=== PATIENT | male | born 1945 | race Caucasian/White ===

== ENCOUNTER 2017-01-21 17:45 | Observation (INO) | payer OTHER ==
--- NOTE | 2017-01-21 18:14 | EDPHY ---
H & P Stated Complaint: pna with r sided weakness last week/today developed r leg weakness and slur Time Seen by Provider: 01/21/17 18:09 HPI/ROS: CHIEF COMPLAINT: Right leg weakness, slurred speech HISTORY OF PRESENT ILLNESS: The patient presents to the ED with complaints of acute right leg weakness and slurred speech. Patient's symptoms began approximately an hour prior to arrival. The patient reportedly was at a grocery store with his grandchildren. The patient states his symptoms have resolved at this point time. The patient states he was hospitalized approximately 1 week ago in [place] with pneumonia. During that hospitalization he also had a brief episode of right leg weakness. The patient reportedly had an MRI of his brain which demonstrated no evidence of an acute stroke. The patient did have some nonspecific white matter changes noted. The patient did not have a workup performed for TIA during that hospitalization. He did follow up with his primary care provider at [place] yesterday and reviewed his workup. The patient states that his symptoms of pneumonia and chills have improved. He took his last dose of antibiotics today. REVIEW OF SYSTEMS: A comprehensive 10 point review of systems is otherwise negative aside from elements mentioned in the history of present illness. Source: Patient Exam Limitations: No limitations - Personal History Current Tetanus/Diphtheria Vaccine: Yes - Medical/Surgical History Hx Asthma: No Hx Chronic Respiratory Disease: No Hx Diabetes: No Hx Cardiac Disease: Yes Hx Renal Disease: No Hx Cirrhosis: No Hx Alcoholism: No Hx HIV/AIDS: No Hx Splenectomy or Spleen Trauma: No Other PMH: pna/mitral regurg - Social History Smoking Status: Never smoked - Physical Exam Exam: General Appearance: Alert, no distress Eyes: Pupils equal and round no pallor or injection ENT, Mouth: Mucous membranes moist Respiratory: There are no retractions, lungs are clear to auscultation Cardiovascular: Regular rate and rhythm Gastrointestinal: Abdomen is soft and nontender, no masses, bowel sounds normal Neurological: A&O, normal motor function, normal sensory exam, normal cranial nerves Skin: Warm and dry, no rashes Musculoskeletal: Neck is supple nontender Extremities: symmetrical, full range of motion Constitutional: Initial Vital Signs Temperature (C) 36.6 C 01/21/17 17:49 Heart Rate 88 01/21/17 17:49 Respiratory Rate 20 01/21/17 17:49 Blood Pressure 159/106 H 01/21/17 17:49 O2 Sat (%) 94 05/12/17 17:49 O2 Delivery Mode Room Air Allergies/Adverse Reactions: No Known Allergies Allergy (Unverified 01/21/17 17:49) Home Medications: Medication Instructions Recorded Antibiotic Uknown 1 tab PO BID 01/21/17 Aspirin EC [Aspirin EC 81 mg (*)] 81 mg PO HS 01/21/17 Atorvastatin Calcium [Lipitor 40 40 mg PO HS 01/21/17 mg (*)] Herbals/Supplements -Info Only 1 ea PO DAILY 01/21/17 Latanoprost 0.005% [Xalatan 0.005% 1 drops EACHEYE HS 01/21/17 (*)] Lisinopril [Zestril 10 mg (*)] 10 mg PO DAILY 01/21/17 Timolol 0.25% [TIMOPTIC 0.25% (*)] 1 drops RTEYE DAILY 01/21/17 amLODIPine BESYLATE [Norvasc 2.5 2.5 mg PO DAILY 01/21/17 mg (*)] traZODone [traZODONE 50MG (*)] 50 mg PO HS PRN 01/21/17 Medical Decision Making - Diagnostics EKG Interpretation: EKG: Complete interpretation has been separately recorded in the [employer] archive. Summary impression: Sinus rhythm, PAC noted Imaging Results: Imaging Impressions Head CT 01/21/17 19:41 Impression: Head CT within normal limits. Final concordant results called to Dr. Guevara at 20:33. General information for patients regarding this examination can be found at [email or web address]. If you have questions or comments about this report, please contact me at [phone] (hospital) or [phone] (cell). Head CTA 01/21/17 19:41 Impression: Incomplete [place]. The left internal carotid artery is the main source of blood to both anterior and the left middle cerebral arteries. There is only a tiny thread of a left posterior communicating artery. In light of the severe left internal carotid artery stenosis, this is an ominous anatomical arrangement. Initial results discussed with Dr. Ran Guevara at 8:[address] Angiography of the Neck (With Contrast) , 20:07 Clinical Indications: Right leg weakness, slurred speech, right arm weakness last week Technique: During IV administration of 90 mL of Isovue-370 intravenously, helical multidetector data acquisition was obtained from the upper thorax cephalad through the skull base. The thinly collimated data were manipulated in multiple projections on the 3D computer workstation by the radiologist. Dose reduction techniques were utilized. Findings: There is a 1.5mm wide, 11mm long, smooth flow-limiting stenosis of the left internal carotid artery, beginning at the bifurcation. The tightest stenosis is distally and measures about 1 mm (greater than 90% NASCET criteria) . There is symmetric density contrast in the normal sized internal carotid artery distal to this stenosis. The right carotid bifurcation is widely patent, with mild nonflow limiting, predominantly noncalcified plaque associated with the proximal internal carotid artery (less than 10% NASCET narrowing). Both vertebral arteries are patent. The proximal left common carotid artery is tortuous and associated with a kink a few centimeters after its origin. The proximal left subclavian artery is also tortuous. Impression: Very tight flow-limiting stenosis proximal left internal carotid artery. Note: All stenoses are calculated using NASCET Criteria. Final concordant results called and discussed with George Guevara, at 2016 20:50 General information for patients regarding this examination can be found at [email or web address]. If you have questions or comments about this report, please contact me at (hospital) or [phone] (cell). Neck CTA 01/21/17 19:41 Impression: Incomplete [place]. The left internal carotid artery is the main source of blood to both anterior and the left middle cerebral arteries. There is only a tiny thread of a left posterior communicating artery. In light of the severe left internal carotid artery stenosis, this is an ominous anatomical arrangement. Initial results discussed with Dr. Ran Guevara at 8:[address] Angiography of the Neck (With Contrast) , 20:07 Clinical Indications: Right leg weakness, slurred speech, right arm weakness last week Technique: During IV administration of 90 mL of Isovue-370 intravenously, helical multidetector data acquisition was obtained from the upper thorax cephalad through the skull base. The thinly collimated data were manipulated in multiple projections on the 3D computer workstation by the radiologist. Dose reduction techniques were utilized. Findings: There is a 1.5mm wide, 11mm long, smooth flow-limiting stenosis of the left internal carotid artery, beginning at the bifurcation. The tightest stenosis is distally and measures about 1 mm (greater than 90% NASCET criteria) . There is symmetric density contrast in the normal sized internal carotid artery distal to this stenosis. The right carotid bifurcation is widely patent, with mild nonflow limiting, predominantly noncalcified plaque associated with the proximal internal carotid artery (less than 10% NASCET narrowing). Both vertebral arteries are patent. The proximal left common carotid artery is tortuous and associated with a kink a few centimeters after its origin. The proximal left subclavian artery is also tortuous. Impression: Very tight flow-limiting stenosis proximal left internal carotid artery. Note: All stenoses are calculated using NASCET Criteria. Final concordant results called and discussed with George Guevara, at 2016 20:50 General information for patients regarding this examination can be found at [email or web address]. If you have questions or comments about this report, please contact me at (hospital) or [phone] (cell). ED Course/Re-evaluation: The patient presents to the ED after 2 episodes of right leg weakness over the past week. The patient also had an expressive aphasia this evening. The patient arrived and was noted to be neurologically intact with complete resolution of his deficits. Because of this, the patient is not a candidate for tPA. I did obtain his past records from [place]. The patient did have an MRI of his brain 1 week ago while in [place] which demonstrated no evidence of an acute stroke. There was evidence of old white matter disease. The patient had no workup for TIA. The patient was noted to have Klebsiella in his sputum and was diagnosed with pneumonia during the [place] hospitalization. The patient was taken for a CT angiogram of the head neck which demonstrates fairly significant left carotid stenosis. The patient was started on IV heparin. Consultation was made with the [facility] physician who has requested the patient be hospitalized here at [facility]. Consultation was made with Dr. Finn from the hospitalist service. The patient will be admitted to the neuro floor this evening. Critical care time exclusive of procedures and exclusive of the PA's time was 35 minutes, performed by myself, George Guevara MD. The patient presents to the ED with increasing neurologic symptoms an acute TIA with symptoms of right leg weakness and expressive aphasia. Symptoms have resolved. The patient is noted to have critical carotid stenosis on his CT angiogram. The patient was started on heparin drip in the ED. Differential Diagnosis: Differential diagnosis considered includes intracranial hemorrhage, carotid artery stenosis, TIA, atypical migraine, lumbar disc herniation - Data Points Laboratory Results: Laboratory Results 01/21/17 18:05 01/21/17 18:05 01/21/17 01/21/17 18:05 18:05 WBC 4.40 10^3/uL 10^3/uL (3.80-9.50) RBC 4.61 10^6/uL 10^6/uL (4.40-6.38) Hgb 14.9 g/dL g/dL (13.7-17.5) Hct 41.8 % % (40.0-51.0) MCV 90.7 fL fL (81.5-99.8) MCH 32.3 pg pg (27.9-34.1) MCHC 35.6 g/dL g/dL (32.4-36.7) RDW 12.5 % % (11.5-15.2) Plt Count 231 10^3/uL 10^3/uL (150-400) MPV 10.2 fL fL (8.7-11.7) Neut % (Auto) 58.0 % % (39.3-74.2) Lymph % (Auto) 24.1 % % (15.0-45.0) [place] % (Auto) 12.0 % % (4.5-13.0) Eos % (Auto) 4.5 % % (0.6-7.6) Baso % (Auto) 0.7 % % (0.3-1.7) Nucleat RBC Rel Count 0.0 % % (0.0-0.2) Absolute Neuts (auto) 2.55 10^3/uL 10^3/uL (1.70-6.50) Absolute Lymphs (auto) 1.06 10^3/uL 10^3/uL (1.00-3.00) Absolute Monos (auto) 0.53 10^3/uL 10^3/uL (0.30-0.80) Absolute Eos (auto) 0.20 10^3/uL 10^3/uL (0.03-0.40) Absolute Basos (auto) 0.03 10^3/uL 10^3/uL (0.02-0.10) Absolute Nucleated RBC 0.00 10^3/uL 10^3/uL (0-0.01) Immature Gran % 0.7 % % (0.0-1.1) Immature Gran # 0.03 10^3/uL 10^3/uL (0.00-0.10) Sodium 136 mEq/L mEq/L (134-144) Potassium 4.2 mEq/L mEq/L (3.5-5.2) Chloride 102 mEq/L mEq/L (97-110) Carbon Dioxide 23 mEq/l mEq/l (22-31) Anion Gap 11 mEq/L mEq/L (8-16) BUN 20 mg/dL mg/dL (7-23) Creatinine 0.9 mg/dL mg/dL (0.7-1.3) Estimated GFR > 60 Glucose 110 mg/dL H mg/dL (70-100) Calcium 9.4 mg/dL mg/dL (8.5-10.4) Troponin I < 0.012 ng/mL ng/mL (0-0.034) Medications Given: Discontinued Medications Heparin Sodium (Porcine) (Heparin Injection) 0 unit IVP EDNOW ONE PRN Reason: Protocol Stop: 01/21/17 20:43 Last Admin: 01/21/17 21:06 Dose: 4,900 units Sodium Chloride (Ns) 1,000 mls @ 0 mls/hr IV ONCE ONE PRN Reason: Wide Open Stop: 01/21/17 18:31 Last Admin: 01/21/17 18:53 Dose: 1,000 mls Heparin Sodium (Porcine) (Heparin 50 Units/Ml (Premix)) 500 mls @ 0 mls/hr IV EDNOW ONE; Per Protocol PRN Reason: Protocol Stop: 01/21/17 20:43 Last Admin: 01/21/17 21:15 Dose: 500 mls Departure - Departure Disposition: [facility] Clinical Impression: Carotid stenosis, left, TIA (transient ischemic attack) Condition: Fair
[2017-01-21] MEDS ORDERED: NS 1,000 ML IV ONE (18:30)
[2017-01-21 19:11] LABS: % IMMATURE GRANULYOCYTES 0.7 % (0.0-1.1); ABSOLUTE IMMATURE GRANULOCYTES 0.03 10^3/uL (0.00-0.10); ADD DIFF? NO; ADD MORPH? NO; ADD SCAN? NO; ATYPICAL LYMPHOCYTE FLAG 10 (0-99); FRAGMENT RBC FLAG 0 (0-99); HEMATOCRIT 41.8 % (40.0-51.0); HEMOGLOBIN 14.9 g/dL (13.7-17.5); LEFT SHIFT FLG 0 (0-99); LIPEMIA HEMOLYSIS FLAG 90 (0-99); MEAN CELL HEMOGLOBIN 32.3 pg (27.9-34.1); MEAN CELL HEMOGLOBIN CONCENTR. 35.6 g/dL (32.4-36.7); MEAN CELL VOLUME 90.7 fL (81.5-99.8); MEAN PLATELET VOLUME 10.2 fL (8.7-11.7); PLATELET CLUMPS FLAG 0 (0-99); PLATELET COUNT 231 10^3/uL (150-400); RED BLOOD CELL COUNT 4.61 10^6/uL (4.40-6.38); RED CELL DISTRIBUTION WIDTH 12.5 % (11.5-15.2)
--- NOTE | 2017-01-21 19:20 | CPEKG ---
Heart Rate: 72 RR Interval: 833 P-R Interval: 176 QRSD Interval: 108 QT Interval: 392 QTC Interval: 430 P [place]: 30 QRS [place]: -26 T Wave [place]: 10 EKG Severity - OTHERWISE NORMAL ECG - EKG Impression: SINUS RHYTHM EKG Impression: ATRIAL PREMATURE COMPLEX Electronically Signed By: George Guevara 21-Jan-2017 22:13:26
[2017-01-21 19:22] LABS: ANION GAP 11 mEq/L (8-16); CALCIUM 9.4 mg/dL (8.5-10.4); CARBON DIOXIDE 23 mEq/l (22-31); CHLORIDE 102 mEq/L (97-110); CREATININE 0.9 mg/dL (0.7-1.3); GLOMERULAR FILTRATION RATE > 60; GLUCOSE 110 mg/dL (70-100); POTASSIUM 4.2 mEq/L (3.5-5.2); SODIUM 136 mEq/L (134-144)
[2017-01-21 19:34] LABS: TROPONIN I < 0.012 ng/mL (0-0.034)
[2017-01-21] MEDS ORDERED: traZODone 50 MG TAB PO PRN (20:14)
[2017-01-21] MEDS ORDERED: IOPAMIDOL (ISOVUE 370) 100 ML BTL IV ONE (20:37)
[2017-01-21] MEDS ORDERED: HEPARIN/DEXTROSE 500 ML IV ONE (20:42)
[2017-01-21] MEDS ORDERED: HEPARIN 10,000 UNIT/10 ML MDV IVP ONE (20:42)
[2017-01-21] MEDS ORDERED: LATANOPROST 0.005% 2.5 ML OPHT DROPS EACHEYE SCH (21:00)
[2017-01-21] MEDS ORDERED: ATORVASTATIN CALCIUM 40 MG TAB PO SCH (21:00)
[2017-01-21] MEDS: CLOPIDOGREL BISULFATE 75 MG TAB PO SCH (21:58)
[2017-01-21] MEDS ORDERED: HEPARIN 10,000 UNIT/10 ML MDV IVP PRN (22:58)
[2017-01-21] MEDS ORDERED: HEPARIN/DEXTROSE 500 ML IV SCH (23:00)
--- NOTE | 2017-01-21 23:05 | PDGENHP ---
History and Physical - Chief Complaint acute paresis - History of Present Illness PCP: Dr. Reyna at [facility] HPI: 71-year-old male presenting with acute paresis located in his right upper extremity and right lower extremity with associated paresthesia, onset of symptoms at 5:30 p.m. and duration approximately 10-30 minutes. Also had some associated dysarthria and confusion. The event was witnessed by his . It resulted in a mechanical nontraumatic fall while he was at [email or web address]. He was not exerting himself at the time of onset of symptoms. The symptoms resolved without any intervention. The experience similar paresis located in his right lower extremity approximately 1 week ago associated with a cough and ultimately diagnosed as pneumonia while he was in [place]. He was prescribed antibiotics and he has been taking them, with alleviation of his cough and chills. History Information - Allergies/Home Medication List Allergies/Adverse Reactions: No Known Allergies Allergy (Unverified 01/21/17 17:49) Home Medications: Antibiotic Uknown 1 tab PO BID 01/21/17 [Last Taken 01/21/17 09:00 1 dose] Aspirin EC [Aspirin EC 81 mg (*)] 81 mg PO HS 01/21/17 [Last Taken 01/20/17] Atorvastatin Calcium [Lipitor 40 mg (*)] 40 mg PO HS 01/21/17 [Last Taken ] Herbals/Supplements -Info Only 1 ea PO DAILY 01/21/17 [Last Taken Unknown] Latanoprost 0.005% [Xalatan 0.005% (*)] 1 drops EACHEYE HS 01/21/17 [Last Taken 01/20/17] Lisinopril [Zestril 10 mg (*)] 10 mg PO DAILY 01/21/17 [Last Taken 01/21/17] Timolol 0.25% [TIMOPTIC 0.25% (*)] 1 drops RTEYE DAILY 01/21/17 [Last Taken 08/28] amLODIPine BESYLATE [Norvasc 2.5 mg (*)] 2.5 mg PO DAILY 01/21/17 [Last Taken ] traZODone [traZODONE 50MG (*)] 50 mg PO HS PRN 01/21/17 [Last Taken 01/20/17] I have personally reviewed and updated: family history, medical history, social history, surgical history - Past Medical History hypertension, hyperlipidemia, TIA ( 1 week ago) Additional medical history: echocardiogram in October demonstrating mild aortic stenosis, moderate mitral regurgitation - Surgical History Additional surgical history: foot surgery in October 2016 - Family History Additional family history: father with CAD and CABG, CVA in his 80s - Social History Smoking Status: Never smoked Alcohol Use: Occasionally (1 drink nightly) Drug Use: None Additional social history: physically active individual Review of Systems ROS: 10pt was reviewed & negative except for what was stated in HPI & below Neurological: Reports: paresthesia, weakness, other ( dysarthria) Physical Exam Temp Pulse Resp BP Pulse Ox 36.8 C 68 16 147/88 H 93 01/21/17 22:01 01/21/17 22:01 01/21/17 22:01 01/21/17 22:01 01/21/17 22:01 Constitutional: no apparent distress, appears nourished, not in pain Eyes: PERRL, anicteric sclera, EOMI Ears, Nose, Mouth, Throat: moist mucous membranes, hearing normal, ears appear normal, no oral mucosal ulcers Cardiovascular: systolic murmur ( 3/6 early systolic and 2/6 late systolic murmur at the apex as well as right sternal border 2/6 systolic), carotid bruit ( left), No irregularly irregular, No tachycardia, No edema Respiratory: no respiratory distress, no rales or rhonchi, clear to auscultation Gastrointestinal: normoactive bowel sounds, soft, non-tender abdomen, no palpable masses Skin: warm, normal color, no rashes or abrasions, no fluctuance, no induration, No mottled Neurologic: AAOx3, sensation intact bilaterally, CN II-XII Intact, No weakness ( motor strength 5/5 bilaterally) Psychiatric: interacting appropriately, not anxious, not encephalopathic, thought process linear Lab Data & Imaging Review 01/21/17 18:05 01/21/17 18:05 WBC 4.40 10^3/uL (3.80-9.50) 01/21/17 18:05 RBC 4.61 10^6/uL (4.40-6.38) 01/21/17 18:05 Hgb 14.9 g/dL (13.7-17.5) 01/21/17 18:05 Hct 41.8 % (40.0-51.0) 01/21/17 18:05 MCV 90.7 fL (81.5-99.8) 01/21/17 18:05 MCH 32.3 pg (27.9-34.1) 01/21/17 18:05 MCHC 35.6 g/dL (32.4-36.7) 01/21/17 18:05 RDW 12.5 % (11.5-15.2) 01/21/17 18:05 Plt Count 231 10^3/uL (150-400) 01/21/17 18:05 MPV 10.2 fL (8.7-11.7) 01/21/17 18:05 Neut % (Auto) 58.0 % (39.3-74.2) 01/21/17 18:05 Lymph % (Auto) 24.1 % (15.0-45.0) 01/21/17 18:05 [place] % (Auto) 12.0 % (4.5-13.0) 01/21/17 18:05 Eos % (Auto) 4.5 % (0.6-7.6) 01/21/17 18:05 Baso % (Auto) 0.7 % (0.3-1.7) 01/21/17 18:05 Nucleat RBC Rel Count 0.0 % (0.0-0.2) 01/21/17 18:05 Absolute Neuts (auto) 2.55 10^3/uL (1.70-6.50) 01/21/17 18:05 Absolute Lymphs (auto) 1.06 10^3/uL (1.00-3.00) 01/21/17 18:05 Absolute Monos (auto) 0.53 10^3/uL (0.30-0.80) 01/21/17 18:05 Absolute Eos (auto) 0.20 10^3/uL (0.03-0.40) 01/21/17 18:05 Absolute Basos (auto) 0.03 10^3/uL (0.02-0.10) 01/21/17 18:05 Absolute Nucleated RBC 0.00 10^3/uL (0-0.01) 01/21/17 18:05 Immature Gran % 0.7 % (0.0-1.1) 01/21/17 18:05 Immature Gran # 0.03 10^3/uL (0.00-0.10) 01/21/17 18:05 Sodium 136 mEq/L (134-144) 01/21/17 18:05 Potassium 4.2 mEq/L (3.5-5.2) 01/21/17 18:05 Chloride 102 mEq/L (97-110) 01/21/17 18:05 Carbon Dioxide 23 mEq/l (22-31) 01/21/17 18:05 Anion Gap 11 mEq/L (8-16) 01/21/17 18:05 BUN 20 mg/dL (7-23) 01/21/17 18:05 Creatinine 0.9 mg/dL (0.7-1.3) 01/21/17 18:05 Estimated GFR > 60 01/21/17 18:05 Glucose 110 mg/dL (70-100) H 01/21/17 18:05 Calcium 9.4 mg/dL (8.5-10.4) 01/21/17 18:05 Troponin I < 0.012 ng/mL (0-0.034) 01/21/17 18:05 Visualized and Interpreted EKG results: Yes EKG Interpretation: Positive for: other ( normal sinus rhythm with Q-wave in lead 3) Assessment & Plan Assessment: 71-year-old male presents with acute TIA in the setting of severe left-sided carotid stenosis Plan: 1. TIA. Acute, new problem this provider, further workup indicated. Evidenced by unilateral paresis and paresthesia accompanied by dysarthria -CT angiogram of the head and neck demonstrating severe left-sided carotid stenosis, most likely etiology with possible distal embolization -given no residual symptoms, hold on repeating MRI, an MRI was reportedly normal from 1 week ago -monitor on telemetry for atrial arrhythmia given his known moderate mitral regurgitation -get hemoglobin A1c, LDL -ABCD2 score of 5, conferring moderate risk of CVA, the patient's risk is significantly higher given that he has been found to have severe unilateral carotid stenosis -get Neurology consultation a.m. to determine whether patient should be on a anti-platelet medication (he was previously on aspirin 81 mg daily, has been adjusted to Plavix 75) versus systemic anticoagulation in the setting of severe carotid stenosis 2. Carotid stenosis. Left-sided, severe, 99%, likely contributing to above -discussed with Dr. Barnes, appreciate his consultation in a.m. to discuss surgical options with the patient as well as potential surgical timing -will place NPO after midnight in case surgery is indicated -have ordered outside records from [facility] including most recent echocardiogram from 3 months ago which reportedly demonstrates mild aortic stenosis and moderate mitral regurgitation 3. Hypertension. Chronic, continue home antihypertensives, permissive hypertension in setting of above Diet. Cardiac, NPO after midnight prophylaxis. Moderate risk patient, currently systemically anticoagulated Code. Full Disposition. Anticipated discharge 01/22/2017, pending further workup and treatment plan as outlined above. If patient requires carotid stenosis surgery , he will be upgraded to inpatient admission status given his high risk of morbidity. I discussed the patient with Dr. Tyler Guevara, he has informed the patient has tried stenosis and is placing him on heparin drip, will continue on the neuro med surge floor.
[2017-01-22 00:25] LABS: APTT 79.7 SEC (23.0-38.0); INR 1.06 (0.83-1.16); PROTIME(PATIENT) 13.7 SEC (12.0-15.0)
[2017-01-22] MEDS ORDERED: hydrALAZINE 20 MG/ML VIAL IVP PRN (00:40)
[2017-01-22 03:28] VITALS: O2SAT 94
[2017-01-22 04:47] LABS: % IMMATURE GRANULYOCYTES 0.8 % (0.0-1.1); ABSOLUTE IMMATURE GRANULOCYTES 0.03 10^3/uL (0.00-0.10); ADD DIFF? NO; ADD MORPH? NO; ADD SCAN? NO; ATYPICAL LYMPHOCYTE FLAG 0 (0-99); FRAGMENT RBC FLAG 0 (0-99); HEMATOCRIT 38.6 % (40.0-51.0); HEMOGLOBIN 13.1 g/dL (13.7-17.5); LEFT SHIFT FLG 0 (0-99); LIPEMIA HEMOLYSIS FLAG 90 (0-99); MEAN CELL HEMOGLOBIN CONCENTR. 33.9 g/dL (32.4-36.7); MEAN CELL VOLUME 91.5 fL (81.5-99.8); MEAN PLATELET VOLUME 9.6 fL (8.7-11.7); PLATELET CLUMPS FLAG 0 (0-99); PLATELET COUNT 184 10^3/uL (150-400); RED BLOOD CELL COUNT 4.22 10^6/uL (4.40-6.38); RED CELL DISTRIBUTION WIDTH 12.5 % (11.5-15.2)
[2017-01-22 05:08] LABS: ALANINE AMINOTRANSFERASE 32 IU/L (21-72); ALBUMIN 3.4 g/dL (3.5-5.0); ALKALINE PHOSPHATASE 54 IU/L (38-126); ASPARTATE AMINOTRANSFERASE 19 IU/L (17-59); BILIRUBIN,TOTAL 0.6 mg/dL (0.1-1.4); CARBON DIOXIDE 26 mEq/l (22-31); CHLORIDE 107 mEq/L (97-110); CHOLESTEROL 124 mg/dL (140-220); CREATININE 0.9 mg/dL (0.7-1.3); GLOMERULAR FILTRATION RATE > 60; GLUCOSE 105 mg/dL (70-100); HIGH DENSITY LIPOPROTEIN 40 mg/dL (40-65); LDL/HDL RATIO 1.83 RATIO (1.00-3.64); LOW DENSITY LIPOPROTEIN 73 mg/dL (80-100); NON-HIGH DENSITY LIPOPROTEIN 84 mg/dL (90-129); SODIUM 142 mEq/L (134-144); TOTAL PROTEIN 5.9 g/dL (6.3-8.2); TRIGLYCERIDE 58 mg/dL (40-150); VERY LOW DENSITY LIPOPROTEINS 11 mg/dL (8-25)
[2017-01-22 05:22] LABS: ANION GAP 9 mEq/L (8-16); POTASSIUM 4.1 mEq/L (3.5-5.2)
[2017-01-22 07:37] VITALS: BP 139/89; PULSE 61; RESP 12; TEMP 98.1
--- NOTE | 2017-01-22 08:18 | SOAPPROG ---
[facility] Progress Note Assessment/Plan: Assessment/Plan: PT seen and examined full consult to follow TIA on heparin Surgical therapy indicated in interval period (elective) 01/22/17 08:17 Objective: Vital Signs Temp Pulse Resp BP Pulse Ox 36.7 C 61 12 139/89 H 94 01/22/17 07:37 01/22/17 07:37 01/22/17 07:37 01/22/17 07:37 01/22/17 07:37 Laboratory Results 01/22/17 04:35 01/22/17 04:35 01/21/17 01/22/17 01/23/17 05:59 05:59 05:59 Intake Total 1000 Output Total 1350 Balance -350 PT 13.7 SEC (12.0-15.0) 01/21/17 23:35 INR 1.06 (0.83-1.16) 01/21/17 23:35 ICD10 Worksheet Patient Problems: Problems Problem Status Onset Carotid stenosis, left Acute TIA (transient ischemic attack) Acute
[2017-01-22] MEDS ORDERED: TIMOLOL 0.25% 5 ML OPHT.BTL RTEYE SCH (09:00)
[2017-01-22] MEDS ORDERED: Herbals/Supplements -Info Only PO SCH (09:00)
[2017-01-22] MEDS ORDERED: LISINOPRIL 10 MG TAB PO SCH (09:00)
[2017-01-22] MEDS: CLOPIDOGREL BISULFATE 75 MG TAB PO SCH (09:30)
--- NOTE | 2017-01-22 09:41 | GCON ---
[f rep st] CONSULTATION NEUROLOGIC CONSULTATION REFERRING PHYSICIAN: Antelmo Finn MD HISTORY OF PRESENT ILLNESS: The patient is a 71-year-old gentleman who I am asked to see in neurolo gi consultation regarding a TIA and severe left internal carotid artery stenosis. He has a history a week ago of being in [place] and developing some temporary right-sided weakness and maybe some slurring of speech on a temporary basis, but went through a workup and was found to have pneumonia and was treated with antibiotics. He did not have any carotid studies at the time. He had an episo de yesterday at 5:30 p.m. in which he was at the store and fell over toward his right side due to we akness in the arm and leg and developed trouble with verbal expression and comprehending language. This resolved after an estimated 10-30 minutes. He seemed a little bit confused on exactly what was happening, according to his . She brought him to the emergency department where he was acutely evaluated and had experienced resolution of his symptoms so he did not get tPA. He has never had a n actual stroke that he knows of. There were no clear-cut alleviating or exacerbating factors. The prominent symptoms resolved completely as noted. He has felt completely normal since then. His does say that even in the last week there might have been a little bit of trouble with some word finding at times and he is moving a little more slowly since his pneumonia. REVIEW OF SYSTEMS: Otherwise, a 10-point review of systems was completed and unremarkable except fo r that described above. PAST MEDICAL HISTORY: Hypertension, hyperlipidemia. The echocardiogram shows some aortic stenosis and mitral regurgitation reportedly. This has been done at [facility] already. FAMILY HISTORY: Family history of stroke and heart disease. SOCIAL HISTORY: He never smoked. He is still working. Maybe 1 drink of alcohol per night. He tri es to stay physically active. MEDICATIONS: On admission to the hospital here: Aspirin 81 mg daily, Xalatan eye drops, Zestril, N orvasc, trazodone, Lipitor 40 mg daily, timolol eye drops. He is currently on IV heparin, as well a s Plavix. ALLERGIES: No known allergies. PHYSICAL EXAMINATION: VITAL SIGNS: Blood pressure is 139/89, pulse 61, respirations 12, temperatur e. 36.7. GENERAL: Well developed, in no acute distress. EYES: Clear. NECK: Supple with a promi nent left carotid bruit. CARDIAC: Regular rate and rhythm with a mild systolic murmur. EXTREMITIE S: No cyanosis or edema. NEUROLOGIC: He is awake, alert, attentive, oriented to person, place, ti me, and general situation. He has good recent and remote memory, as well as normal concentration, a ttention, and general fund of knowledge. He has a friendly and euthymic affect. Pupils 4 mm and re active. Unremarkable fundi. No visual field loss. Extraocular movements are intact. Normal facia l sensation and strength. Palate elevates symmetrically. Tongue protrudes midline. Hearing is pre served. No weakness of head turning or shoulder shrug. Motor exam: Normal muscle bulk and tone; 5 /5 strength. Sensation is preserved for temperature and light touch. No ataxic movements. Reflexe s 1+. No pathologic reflexes. LAB AND X-RAYS: Unremarkable CBC. His LDL cholesterol is 73. Normal INR. The patient has had a head CT; this shows no significant abnormalities. CT angiogram shows a greate r than 90% stenosis of the proximal left internal carotid artery with an incomplete [place] of Vargas characterized by right MCA filling through the right carotid artery and the left carotid system res ponsible for bilateral anterior cerebral arteries and left middle cerebral artery, as well as a poor posterior communicating artery. IMPRESSION AND PLAN: The patient has had 2 episodes of transient ischemic attacks within the last w [place] and has a critical stenosis of the left internal carotid artery. He is currently on heparin and Plavix. He has an NIH Stroke Scale now of 0. He needs to have correction of the internal carotid artery stenosis as soon as possible and certainly within a 2 week window. I had a good detailed dis cussion with him and I am in the process of conferring with our surgeons, as well as trying to reach [facility] for discussions about their recommendation on management here versus their facility. In any case, we will continue to monitor him until we establish a definitive plan. He and his were c omfortable with this approach and understand the general risks of what is occurring and are definite ly interested in moving forward toward a more definitive treatment as soon as we can. Copy requested to: Kathryn Vargas MD [facility] /[id number]/MODL
--- NOTE | 2017-01-22 10:27 | GCON ---
[f rep st] CONSULTATION HISTORY OF PRESENT ILLNESS: This is a 71-year-old gentleman who had been out camping last week in [facility], found to have weakness of his right leg, associated with fevers, chills and a cough. He was treated at [facility] in [place], and found to have pneumonia, treated with antibiot ics. He had recurrence of right lower extremity weakness and dysarthria, witnessed by his , and was brought into [facility] for evaluation. He was found to have an acute cerebral vascular accident, with resolution of his symptoms almost immediately. He has been placed on anticoagulation and his diagnosis is now that of TIA, with severe carotid stenosis, that would be amenable to surgical treatment. PAST MEDICAL HISTORY: Significant for hypertension, hyperlipidemia, and aortic stenosis with modera te mitral regurgitation. He has a surgical history of foot surgery in October of 2016, which he di d well with. FAMILY HISTORY: Coronary artery disease, and CVA in his father. SOCIAL HISTORY: He is . Has 1 drink daily, is physically active. Denies ever smoking or vargas ving used drugs. REVIEW OF SYSTEMS: Significant for his dysarthria, right lower extremity weakness, which has since resolved. All others are reviewed and negative. MEDICATIONS: At home include atorvastatin, Xalatan eyedrops, Zestril, atenolol, amlodipine, trazodo ne, aspirin, and an antibiotic of unknown type that he got last week. ALLERGIES: He has no known drug allergies. PHYSICAL EXAMINATION: VITAL SIGNS: The patient has a BMI of 26.7, temperature of 36.7, heart rate of 61, blood pressure of 139/89, down from a high of 164/97 last evening. HEENT: His sclerae are a nicteric. Pupils are 3 mm, they are reactive. Extraocular motions are intact. He has good dentition. LUNGS: Clear bilaterally. HEART: Regular heart tones, S1, S2, with a 2/6 systolic ejection murmur. NECK: No carotid bruits. His trachea i s midline. No JVD. No cervical or supraclavicular adenopathy. ABDOMEN: Soft, nondistended, nonte nder. EXTREMITIES: 2+/2+ femoral dorsalis pedis, radial pulses. No extremity edema. Good range o f motion. Normal muscle strength bilaterally equal upper and lower extremities, 5+. I am not able to observe his gait. NEUROLOGICALLY: He seems nonfocal at this point. SKIN: Has normal turgor and tone. LABORATORIES: Show a hemoglobin of 13.5, hematocrit of 38.6, white blood cell count is 3.6, and gini telet count is 184. Chemistries show sodium 142, potassium 4.1, chloride 107, bicarb 26, BUN 16, cr eatinine 0.9. Cholesterol is low at 124, LDL is low at 73, HDL is normal at 40. Glucose is 105. H e is on a heparin drip. INR 1.06, but APTT is 79.7, which is therapeutic. CT angiogram of the neck and CT of the head are reviewed personally and with the patient, the findings of a 99% stenosis of the carotid artery on the left, with an incomplete mechoopda of Vargas. No signs of acute infarct, no hypodense lesions within the carotid vessels or there distribution. IMPRESSION: Ischemic stroke. PLAN: Anticoagulation, stabilization at this point, interval surgical correction of endarterectomy likely with intraoperative shunt placement to maintain perfusion. The patient has been apprised of the risks, benefits, alternatives, including the risk of immediate stroke and permanent neurologic d eficits post operation. Also, there is a higher risk if he does not do this and he chooses a medica l alternative. The patient and his were present for the discussion. Greater than 45 minutes w as spent in [id number] time and coordination of care. Likely, the patient will be discharged on a n antiplatelet agent. He had been on low-dose aspirin, I would suggest Plavix, and follow up with v ascular surgery as an outpatient for elective/urgent repair. /[id number]/MODL
--- NOTE | 2017-01-22 11:57 | GDS ---
[f rep st] DISCHARGE SUMMARY DIAGNOSES: 1. Transient ischemic attack. 2. Greater than 90% stenosis of the proximal left internal carotid artery with an incomplete [place] of Vargas characterized by right middle cerebral artery filling through the right carotid artery an d the left carotid system responsible for bilateral anterior cerebral arteries and left middle cereb ral artery. 3. Hypertension. 4. Dyslipidemia. 5. Mild aortic stenosis. 6. Moderate mitral regurgitation. PROCEDURES DONE: 1. Head and neck CT angiogram. Incomplete [place] of Vargas. The left internal carotid artery is t he main source of blood to both the anterior and left middle cerebral arteries. There is only a tin y thread of left posterior communicating artery. 2. Very tight flow-limiting stenosis proximal left internal carotid artery. 3. Head CT. Negative for cerebrovascular accident. CONSULTATIONS: Include. 1. Diego Huddleston MD, Neurology. 2. Walter Barnes MD, Vascular Surgery. HOSPITAL COURSE: The patient is a very nice 71-year-old man who was admitted to this facility with a transient ischemic attack. He fell to his left side due to weakness in the arm and leg and had so me difficulty with aphasia. This resolved after 10-30 minutes and has not recurred. He had a simil ar episode a week prior to admission in [place]. He was admitted overnight. The above procedure s were done which revealed a tight left carotid artery stenosis, compatible with his symptoms. He i nitially was placed on IV heparin. This was transitioned to Plavix when he had no further episodes. Dr. Huddleston saw him in consultation, and at this time, the plan is to discharge him home on Plav ix. He is to follow up with [facility] on Tuesday to schedule a carotid artery endarterectomy in the janine y near future. The patient and family are comfortable with this decision. Again, he was warned if he has any further neurologic signs or symptoms [facility] He has had no further episodes or TIAs during his stay at the hospital. CONDITION ON DISCHARGE: Good. Vital signs have been stable. He is neurologically intact. DISCHARGE MEDICATIONS: Please see discharge medication form. New medications include Plavix 75 mg daily. 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 Kathryn Vargas, or his primary care physician, Dr. Cleveland Reyna this week to schedule a carotid endarterectomy at [facility]. Please cc a copy this to Dr. Kathryn Vargas at [facility] and Dr. Cleveland Reyna at [facility]. We will send copies of his CD s, imaging with the patient. Copy requested to: Dr. Kathryn Narvaez /[id number]/MODL
[2017-01-24 01:41] LABS: HEMOGLOBIN A1C 5.9 % (4.0-6.0)
== END 2017-01-22 12:38 | disposition home or self-care (01) ==
LOC: F3N 21:28
PROVIDERS: ADMIT Internal Medicine; ATTEND Internal Medicine
DX: I65.22 Occlusion and stenosis of left carotid artery (principal); Z87.01 Personal history of pneumonia (recurrent); I10 Essential (primary) hypertension; E78.5 Hyperlipidemia, unspecified; I34.0 Nonrheumatic mitral (valve) insufficiency; Z82.49 Family history of ischemic heart disease and other diseases of the circulatory system
CPT/HCPCS: 70450; 70496; 70498; 93005; G0378; J1644; Q9967; 85520-90

== ENCOUNTER 2017-01-22 15:02 | Inpatient (IN) | payer OTHER ==
--- NOTE | 2017-01-22 15:03 | EDPHY ---
H & P Time Seen by Provider: 01/22/17 15:03 HPI/ROS: CHIEF COMPLAINT: Right leg weakness HISTORY OF PRESENT ILLNESS: Dr. Diego Huddleston from Neurology called at 1503. The patient was discharged just 3 hours ago on plavix with diagnosis of left internal carotid stenosis. He returns because his leg on the right side does not feel right. He had some intermittent right-sided weakness in [place] a week ago which resolved; then he came to the emergency department yesterday with right-sided symptoms including leg weakness which resolved. He had right leg weakness and difficulty speaking at 5:00 p.m. yesterday, which lasted about an hour. Today he was discharged and around 3:00 p.m. started feeling right leg weakness although he is able to continue to walk it definitely felt not as strong as this morning. Not associated with arm weakness or speech difficulty today. Symptoms mild. REVIEW OF SYSTEMS: Eye: no change in vision ENT: no sore throat Cardiac: no chest pain or syncope Pulmonary: no cough or SOB Abdomen: no vomiting, diarrhea, abdominal pain Musculoskeletal: no back pain Skin: no rash Neuro: no headache Constitutional: no fever : no urinary symptoms A comprehensive 10 point review of systems is otherwise negative aside from elements mentioned in the history of present illness. PAST MEDICAL HISTORY: Discharge from Dr. Aldridge from today reviewed by myself. Includes TIA with greater than 90% stenosis of the left ICA. Hypertension, dyslipidemia, mitral regurgitation. Social history: Nonsmoker General Appearance: Alert and conversant, cooperative. Eyes: No scleral icterus. ENT, Mouth: Normal mucous membranes. Respiratory: Normal respiratory effort, breath sounds equal, lungs are clear to auscultation. Cardiovascular: Regular rate and rhythm. Gastrointestinal: Abdomen is soft and non tender. Neurological: Alert and oriented x3. Normally conversant. Face symmetric, normal movement and sensation in all extremities. I cannot detect any decrease in strength in the patient's right leg with knee flexion or extension or dorsiflexion or plantar flexion of the feet. No clonus. Toes downgoing. Skin: Warm and dry, no rashes. Musculoskeletal: No peripheral edema and no joint swelling. Psychiatric: Not agitated. Emergency Department course/MDM: 1522: Mona from [facility] requests that we keep the patient at [facility] for definitive treatment. Dr. Huddleston from Neurology requests IV heparin bolus and drip and consultation from Dr. Harmon. 1527: Dr. Harmon aware, will consult. Admit hospitalist per Faustino request, heparin started in emergency department. Smoking Status: Never smoked Constitutional: Initial Vital Signs Temperature (C) 36.6 C 01/22/17 15:08 Heart Rate 82 01/22/17 15:08 Respiratory Rate 17 01/22/17 15:08 Blood Pressure 156/90 H 01/22/17 15:08 O2 Sat (%) 94 01/22/17 15:08 O2 Delivery Mode Room Air Allergies/Adverse Reactions: No Known Allergies Allergy (Verified 01/22/17 15:07) Home Medications: Medication Instructions Recorded Aspirin EC [Aspirin EC 81 mg (*)] 81 mg PO HS 01/21/17 Atorvastatin Calcium [Lipitor 40 40 mg PO HS 01/21/17 mg (*)] Herbals/Supplements -Info Only 1 ea PO DAILY 01/21/17 Latanoprost 0.005% [Xalatan 0.005% 1 drops EACHEYE HS 01/21/17 (*)] Lisinopril [Zestril 10 mg (*)] 10 mg PO DAILY 01/21/17 Timolol 0.25% [TIMOPTIC 0.25% (*)] 1 drops RTEYE DAILY 01/21/17 amLODIPine BESYLATE [Norvasc 2.5 2.5 mg PO DAILY 01/21/17 mg (*)] traZODone [traZODONE 50MG (*)] 50 mg PO HS PRN 01/21/17 Clopidogrel Bisulfate [Plavix (*)] 75 mg PO DAILY #30 tab 01/22/17 Medical Decision Making - Diagnostics EKG Interpretation: 12-lead EKG interpreted by me; official reading is in trace master. My interpretation is sinus rhythm rate 71 with left axis. Differential Diagnosis: Differential for right leg weakness considered including but not limited to spinal stenosis, lumbar radiculopathy, intracranial bleed or mass, ischemic stroke, carotid stenosis. Critical Care Time: Critical care time spent by me, Dr. Valdez, exclusively with the care of this patient was 30 minutes, exclusive of PA or WAREHOUSE ORDER PICKER time and exclusive of separate procedures. The organ system at risk was neurologic and I ordered IV heparin drip, consultation with neurologist and surgeon and hospitalist; to stabilize the patient and prevent worsening of the patient's condition. - Data Points Laboratory Results: Laboratory Results 01/22/17 15:30 01/22/17 15:30 01/22/17 01/22/17 01/22/17 15:30 15:30 15:30 WBC 5.01 10^3/uL 10^3/uL (3.80-9.50) RBC 4.88 10^6/uL 10^6/uL (4.40-6.38) Hgb 15.6 g/dL g/dL (13.7-17.5) Hct 44.3 % % (40.0-51.0) MCV 90.8 fL fL (81.5-99.8) MCH 32.0 pg pg (27.9-34.1) MCHC 35.2 g/dL g/dL (32.4-36.7) RDW 12.5 % % (11.5-15.2) Plt Count 237 10^3/uL D 10^3/uL (150-400) MPV 9.5 fL fL (8.7-11.7) Neut % (Auto) 65.0 % % (39.3-74.2) Lymph % (Auto) 21.0 % % (15.0-45.0) [place] % (Auto) 11.2 % % (4.5-13.0) Eos % (Auto) 2.0 % % (0.6-7.6) Baso % (Auto) 0.4 % % (0.3-1.7) Nucleat RBC Rel Count 0.0 % % (0.0-0.2) Absolute Neuts (auto) 3.26 10^3/uL 10^3/uL (1.70-6.50) Absolute Lymphs (auto) 1.05 10^3/uL 10^3/uL (1.00-3.00) Absolute Monos (auto) 0.56 10^3/uL 10^3/uL (0.30-0.80) Absolute Eos (auto) 0.10 10^3/uL 10^3/uL (0.03-0.40) Absolute Basos (auto) 0.02 10^3/uL 10^3/uL (0.02-0.10) Absolute Nucleated RBC 0.00 10^3/uL 10^3/uL (0-0.01) Immature Gran % 0.4 % % (0.0-1.1) Immature Gran # 0.02 10^3/uL 10^3/uL (0.00-0.10) PT 13.0 SEC SEC (12.0-15.0) INR 0.99 (0.83-1.16) APTT 23.0 SEC D SEC (23.0-38.0) Sodium 142 mEq/L mEq/L (134-144) Potassium 4.2 mEq/L mEq/L (3.5-5.2) Chloride 104 mEq/L mEq/L (97-110) Carbon Dioxide 27 mEq/l mEq/l (22-31) Anion Gap 11 mEq/L mEq/L (8-16) BUN 15 mg/dL mg/dL (7-23) Creatinine 1.0 mg/dL mg/dL (0.7-1.3) Estimated GFR > 60 Glucose 120 mg/dL H mg/dL (70-100) Calcium 9.9 mg/dL mg/dL (8.5-10.4) Medications Given: Discontinued Medications Heparin Sodium (Porcine) (Heparin Injection) 0 unit IVP EDNOW ONE PRN Reason: Protocol Stop: 01/22/17 15:25 Last Admin: 01/22/17 15:45 Dose: 4,700 units Heparin Sodium (Porcine) (Heparin 50 Units/Ml (Premix)) 500 mls @ 0 mls/hr IV EDNOW ONE; Per Protocol PRN Reason: Protocol Stop: 01/22/17 15:25 Last Admin: 01/22/17 15:45 Dose: 500 mls Departure - Departure Disposition: [facility] Inpatient Acute Clinical Impression: Carotid stenosis, left Condition: Good
[2017-01-22] MEDS ORDERED: HEPARIN 10,000 UNIT/10 ML MDV IVP ONE (15:24)
[2017-01-22] MEDS ORDERED: HEPARIN/DEXTROSE 500 ML IV ONE (15:24)
--- NOTE | 2017-01-22 15:51 | CPEKG ---
Heart Rate: 71 RR Interval: 845 P-R Interval: 172 QRSD Interval: 104 QT Interval: 396 QTC Interval: 431 P [place]: 17 QRS [place]: -31 T Wave [place]: 22 EKG Severity - OTHERWISE NORMAL ECG - EKG Impression: SINUS RHYTHM EKG Impression: LEFT AXIS DEVIATION Electronically Signed By: Yariel Valdez 22-Jan-2017 15:53:55
[2017-01-22 15:52] LABS: % IMMATURE GRANULYOCYTES 0.4 % (0.0-1.1); ABSOLUTE IMMATURE GRANULOCYTES 0.02 10^3/uL (0.00-0.10); ADD DIFF? NO; ADD MORPH? NO; ADD SCAN? NO; ATYPICAL LYMPHOCYTE FLAG 0 (0-99); FRAGMENT RBC FLAG 0 (0-99); HEMATOCRIT 44.3 % (40.0-51.0); HEMOGLOBIN 15.6 g/dL (13.7-17.5); LEFT SHIFT FLG 0 (0-99); LIPEMIA HEMOLYSIS FLAG 90 (0-99); MEAN CELL HEMOGLOBIN CONCENTR. 35.2 g/dL (32.4-36.7); MEAN CELL VOLUME 90.8 fL (81.5-99.8); MEAN PLATELET VOLUME 9.5 fL (8.7-11.7); PLATELET CLUMPS FLAG 10 (0-99); PLATELET COUNT 237 10^3/uL (150-400); RED BLOOD CELL COUNT 4.88 10^6/uL (4.40-6.38); RED CELL DISTRIBUTION WIDTH 12.5 % (11.5-15.2)
[2017-01-22 16:01] LABS: ANION GAP 11 mEq/L (8-16); CALCIUM 9.9 mg/dL (8.5-10.4); CARBON DIOXIDE 27 mEq/l (22-31); CHLORIDE 104 mEq/L (97-110); GLOMERULAR FILTRATION RATE > 60; GLUCOSE 120 mg/dL (70-100); POTASSIUM 4.2 mEq/L (3.5-5.2); SODIUM 142 mEq/L (134-144)
[2017-01-22 16:25] LABS: INR 0.99 (0.83-1.16)
[2017-01-22] MEDS ORDERED: ONDANSETRON DISINTEGRATING 4 MG TAB PO PRN (17:23)
[2017-01-22] MEDS ORDERED: ONDANSETRON 4 MG/2 ML VIAL IVP PRN (17:23)
[2017-01-22] MEDS ORDERED: ACETAMINOPHEN 325 MG TAB PO PRN (17:23)
[2017-01-22] MEDS ORDERED: HEPARIN 10,000 UNIT/10 ML MDV IVP PRN (17:25)
[2017-01-22] MEDS ORDERED: traZODone 50 MG TAB PO PRN (17:26)
[2017-01-22] MEDS ORDERED: HEPARIN/DEXTROSE 500 ML IV SCH (17:30)
--- NOTE | 2017-01-22 18:08 | PDGENHP ---
History and Physical - Chief Complaint Acute paresis - History of Present Illness primary care provider: Dr. Cleveland Reyna Primary business analyst sales operations: Dr. Kathryn Vargas HPI: 71-year-old male presents with acute paresis characterized as a light and compromised feeling located in his right lower extremity with some associated paresthesias and onset of symptoms at 3:00 p.m. on the day of arrival. Duration of symptoms was approximately 45 minutes and they occurred while the patient was casually ambulating around his house and in his yard. Patient was not exerting himself when he experienced the symptoms. Patient had eaten lunch prior to his onset of symptoms. He denies any dysarthria or confusion. The symptoms were alleviated without any intervention. The patient called Dr. Huddleston and he was instructed to return to the emergency department immediately. History Information - Allergies/Home Medication List Allergies/Adverse Reactions: No Known Allergies Allergy (Verified 01/22/17 15:07) Home Medications: Aspirin EC [Aspirin EC 81 mg (*)] 81 mg PO HS 01/21/17 [Last Taken 01/20/17] Atorvastatin Calcium [Lipitor 40 mg (*)] 40 mg PO HS 01/21/17 [Last Taken ] Herbals/Supplements -Info Only 1 ea PO DAILY 01/21/17 [Last Taken Unknown] Latanoprost 0.005% [Xalatan 0.005% (*)] 1 drops EACHEYE HS 01/21/17 [Last Taken 01/20/17] Lisinopril [Zestril 10 mg (*)] 10 mg PO DAILY 01/21/17 [Last Taken 01/21/17] Timolol 0.25% [TIMOPTIC 0.25% (*)] 1 drops RTEYE DAILY 01/21/17 [Last Taken 08/28] amLODIPine BESYLATE [Norvasc 2.5 mg (*)] 2.5 mg PO DAILY 01/21/17 [Last Taken ] traZODone [traZODONE 50MG (*)] 50 mg PO HS PRN 01/21/17 [Last Taken 01/20/17] I have personally reviewed and updated: family history, medical history, social history, surgical history - Past Medical History hypertension, hyperlipidemia, TIA ( 1 day prior, as well as 1 week ago) Additional medical history: Mild aortic stenosis, moderate mitral regurgitation. 90% left-sided carotid stenosis - Surgical History Additional surgical history: foot surgery in October 2016 - Family History Additional family history: father with CAD and CABG, CVA in his 80s - Social History Smoking Status: Never smoked Alcohol Use: None Drug Use: None Additional social history: physically active individual Review of Systems ROS: 10pt was reviewed & negative except for what was stated in HPI & below Neurological: Reports: paresthesia, weakness ( right lower extremity) Physical Exam Temp Pulse Resp BP Pulse Ox 36.6 C 70 21 H 142/86 H 94 01/22/17 15:08 01/22/17 17:34 01/22/17 17:34 01/22/17 17:34 01/22/17 17:34 Constitutional: no apparent distress, appears nourished, not in pain Eyes: PERRL, anicteric sclera, EOMI Ears, Nose, Mouth, Throat: moist mucous membranes, hearing normal, ears appear normal, no oral mucosal ulcers Cardiovascular: regular rate and rhythym, systolic murmur ( 3/6 early systolic murmur at apex with 2/6 late systolic murmur at apex, 2/6 systolic murmur at right sternal border), carotid bruit ( on left), No edema Respiratory: no respiratory distress, no rales or rhonchi, clear to auscultation Gastrointestinal: normoactive bowel sounds, soft, non-tender abdomen, no palpable masses Genitourinary: no bladder fullness, no bladder tenderness Neurologic: AAOx3, sensation intact bilaterally, CN II-XII Intact, No weakness ( motor strength 5/5 bilateral upper and lower extremities) Psychiatric: interacting appropriately, not anxious, not encephalopathic, thought process linear Lab Data & Imaging Review 01/22/17 15:30 01/22/17 15:30 WBC 5.01 10^3/uL (3.80-9.50) 01/22/17 15:30 RBC 4.88 10^6/uL (4.40-6.38) 01/22/17 15:30 Hgb 15.6 g/dL (13.7-17.5) 01/22/17 15:30 Hct 44.3 % (40.0-51.0) 01/22/17 15:30 MCV 90.8 fL (81.5-99.8) 01/22/17 15:30 MCH 32.0 pg (27.9-34.1) 01/22/17 15: MCHC 35.2 g/dL (32.4-36.7) 01/22/17 15:30 RDW 12.5 % (11.5-15.2) 01/22/17 15:30 Plt Count 237 10^3/uL (150-400) D 01/22/17 15: MPV 9.5 fL (8.7-11.7) 01/22/17 15:30 Neut % (Auto) 65.0 % (39.3-74.2) 01/22/17 15:30 Lymph % (Auto) 21.0 % (15.0-45.0) 01/22/17 15:30 [place] % (Auto) 11.2 % (4.5-13.0) 01/22/17 15:30 Eos % (Auto) 2.0 % (0.6-7.6) 01/22/17: Baso % (Auto) 0.4 % (0.3-1.7) 01/22/17 15: Nucleat RBC Rel Count 0.0 % (0.0-0.2) 01/22/17 15: Absolute Neuts (auto) 3.26 10^3/uL (1.70-6.50) 01/22/17 15:30 Absolute Lymphs (auto) 1.05 10^3/uL (1.00-3.00) 01/22/17:30 Absolute Monos (auto) 0.56 10^3/uL (0.30-0.80) 01/22/17 15:30 Absolute Eos (auto) 0.10 10^3/uL (0.03-0.40) 01/22/17: Absolute Basos (auto) 0.02 10^3/uL (0.02-0.10) 01/22/17 15: Absolute Nucleated RBC 0.00 10^3/uL (0-0.01) 01/22/17 15:30 Immature Gran % 0.4 % (0.0-1.1) 01/22/17: Immature Gran # 0.02 10^3/uL (0.00-0.10) 01/22/17 15:30 PT 13.0 SEC (12.0-15.0) 01/22/17 15:30 INR 0.99 (0.83-1.16) 01/22/17 15:30 APTT 23.0 SEC (23.0-38.0) D 01/22/17 15:30 Sodium 142 mEq/L (134-144) 01/22/17 15:30 Potassium 4.2 mEq/L (3.5-5.2) 01/22/17 15:30 Chloride 104 mEq/L (97-110) 01/22/17 15:30 Carbon Dioxide 27 mEq/l (22-31) 01/22/17 15:30 Anion Gap 11 mEq/L (8-16) 01/22/17 15:30 BUN 15 mg/dL (7-23) 01/22/17 15:30 Creatinine 1.0 mg/dL (0.7-1.3) 01/22/17 15:30 Estimated GFR > 60 01/22/17 15:30 Glucose 120 mg/dL (70-100) H 01/22/17 15:30 Calcium 9.9 mg/dL (8.5-10.4) 01/22/17 15:30 Visualized and Interpreted EKG results: Yes EKG Interpretation: Positive for: other ( normal sinus rhythm) Assessment & Plan Assessment: 71-year-old male presents with acute, recurrent TIA in the setting of critical left-sided carotid stenosis Plan: 1. Recurrent TIA. Acute, new problem this provider, further workup indicated. This is patient's 3rd TIA in the past week and warrants surgical intervention for his likely cause which is left-sided critical carotid stenosis -continue to monitor on telemetry for any concomitant arrhythmias - discontinued aspirin and Plavix, continue on heparin drip -appreciate ongoing Neurology consultation -neuro checks -ABCD2 score of 5, conferring moderate risk, that being said, patient's recurrence of TIA in the setting of known stenosis places him at very high risk of short-term CVA the underlying cause is not treated 2. Carotid stenosis. Severe, left-sided, 90%, requiring surgical intervention - discussed with Dr. Yariel Valdez in the emergency department, he has consulted with Dr. Peterson Harmon and a left-sided CEA will be planned - Dr. Diego Huddleston has recommended placing the patient on a heparin drip and this has been initiated 3. Hypertension. Chronic, continue home medications Diet. Cardiac Prophylaxis. Moderate risk patient, currently on heparin drip Code. Full is MPOA Disposition. Anticipated discharge uncertain this time, anticipated length stay is greater than 48 hours warranting inpatient admission status for acute recurrent TIA requiring heparin drip and urgent CEA. Dr. Yariel Valdez has informed me that [facility] today has been contacted and they like the patient to be treated and admitted as an inpatient here at [facility].
--- NOTE | 2017-01-22 18:18 | GCON ---
[f rep st] CONSULTATION REFERRING PHYSICIAN: Yariel Valdez MD REASON FOR EVALUATION: Symptomatic carotid stenosis. HISTORY OF PRESENT ILLNESS: 71-year-old male, discharged from the hospital earlier this morning, admitted yesterday with symptoms of a left hemispheric TIA with resultant right arm and leg weakness with dysarthria. He was discharged home with Plavix earlier today. A few hours after returning home, he developed recurrent right leg weakness, for which he presented back to [facility] Emergency Room. Upon being taken back to his room, his symptoms all resolved. He denies subsequent arm symptoms or difficulty with speaking today. Significantly, he had been camping the week prior while in [place] and suffered an episode of fever, chills, and cough, with right leg weakness secondary to a TIA. He was seen in the Emergency Room at [facility] at that time with a diagnosis of pneumonia and TIA. He was managed with antibiotics. No radiographic evidence of a stroke was noted during that workup. Throughout any of his 3 episodes, he has denied any history of amaurosis type symptoms. He has never had a history of stroke-like symptoms. The patient is notably active. He denies chest pains or shortness of breath with exertion. He denies symptoms of claudication or rest pain. He has never suffered from any other thromboembolic events. He has a known history of aortic stenosis and mitral regurgitation, which has been managed medically per his [facility] physicians. He denies a history of a myocardial infarction. He does have a significant history for multiple family members with stroke and carotid artery stenosis. The patient is, otherwise, without complaints at this time. PAST MEDICAL HISTORY: Hypertension, hyperlipidemia, aortic stenosis with mitral regurgitation, intermittent GERD, prostate cancer, status post seed placement. PAST SURGICAL HISTORY: L4-5 lumbar microdiskectomy, recent foot surgery. MEDICATIONS: Atorvastatin, Xalatan, Zestril, atenolol, amlodipine, trazodone, aspirin, Plavix. 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 He is . Denies significant alcohol or tobacco. FAMILY HISTORY: As noted above. REVIEW OF SYSTEMS: Notable for above neurologic and respiratory complaints, and pneumonia. Otherwise, negative 10 point review of systems. PHYSICAL EXAM: VITAL SIGNS: Temperature 36.6, blood pressure 130/80, pulse 70 , respirations 16. GENERAL: The patient is alert, appropriate, comfortable. HEENT: Pupils are equally round and reactive to light and accommodation. Extraocular muscles are intact. Peripheral visual eagle are symmetric. NECK: 2+ carotid pulses without audible bruit. HEART: Regular with a prominent 3/ 6 systolic murmur, greatest over the left lower sternal border. ABDOMEN: Soft , nontender, nondistended. No pulsatile masses. No bruits. EXTREMITIES: Unremarkable. 2+ radial, brachial, carotid, femoral, popliteal, dorsalis pedis , and posterior tibial pulses bilaterally. NEUROLOGIC: The patient is alert, appropriate x3. Speech is normal. Sensation normal to light touch bilateral upper and lower extremities. Motor 5/5 bilateral upper and lower extremities. SKIN: Without rashes. LABORATORY DATA: White count 5, hemoglobin 16, platelets of 240, INR 1. Electrolytes within reference range. CT imaging of the neck from yesterday was directly reviewed with the radiologist and with the patient's family on PACS. A significant left proximal ICA stenosis with calcific plaque present, insignificant right internal carotid artery stenosis. The anterior and left middle cerebral arteries are directly supplied by the left internal carotid artery with visually incomplete huslia of Vargas noted. No vertebral stenoses are present. IMPRESSION: 1. Crescendo transient ischemic attack. 2. Severe left internal carotid artery stenosis. 3. History of aortic stenosis with mitral regurgitation. RECOMMENDATIONS: The patient had his third neurologic event this week despite aspirin and Plavix therapy. He is being admitted this time for continuous heparin administration, with plans to proceed with left carotid endarterectomy on this admission. Procedural risks and benefits were discussed at length with the patient's and family. The controversial timing of the surgery was discussed , as were anticipated outcomes. Family is aware of the heightened risk of stroke both with and/or without intervention relative to elective carotid endarterectomy. All questions were entertained. Final timing to follow pending initial hospital course. The case was reviewed with Brice, who requested that the patient remain at [facility] for definitive surgical management. Care plan was also discussed with Dr. Valdez in the emergency room. /[id number]/MODL MTDD
[2017-01-22 18:51] LABS: INR 1.08 (0.83-1.16); PROTIME(PATIENT) 13.9 SEC (12.0-15.0)
[2017-01-22 19:02] LABS: APTT 75.7 SEC (23.0-38.0)
[2017-01-22] MEDS: ATORVASTATIN CALCIUM 40 MG TAB PO SCH (20:59)
[2017-01-23] MEDS: LATANOPROST 0.005% 2.5 ML OPHT DROPS EACHEYE SCH ×2 (04:44→20:49)
[2017-01-23] MEDS: LISINOPRIL 10 MG TAB PO SCH (08:13)
[2017-01-23] MEDS: TIMOLOL 0.25% 5 ML OPHT.BTL RTEYE SCH (08:33)
[2017-01-23] MEDS ORDERED: Herbals/Supplements -Info Only PO SCH (09:00)
--- NOTE | 2017-01-23 09:29 | SOAPPROG ---
SOAP Progress Note Assessment/Plan: Assessment:no complaints. no further right leg weakness. no new neurologic complaints. avss. comfortable. heart reg. lungs clear. neuro 5/5 strength BUE and BLE. speech normal. sensation normal BUE/BLE. symptomatic left carotid stenosis with crescendo TIA - plan for left CEA in am. cont heparin and plavix for now. surgical risks and benefits were discussed in detail including but not limited to bleeding (plavix/heparin...), infection, recurrent stenosis (role of patch reviewed), heightened stroke risk given recent crescendo symptoms, nerve injury, heart attack... anticipated recovery reviewed. all questions entertained between he and his . care plan discussed with drs. will and michael. heparin/npo plan also reviewed with nursing staff. Plan: 01/23/17 09:25 Objective: Vital Signs Temp Pulse Resp BP Pulse Ox 36.6 C 63 18 153/87 H 96 01/23/17 08:10 01/23/17 08:10 01/23/17 08:10 01/23/17 08:10 01/23/17 08:10 01/22/17 01/23/17 01/24/17 05:59 05:59 05:59 Intake Total 300 Output Total 1460 300 Balance -1160 -300 PT 13.9 SEC (12.0-15.0) 01/22/17 18:30 INR 1.08 (0.83-1.16) 01/22/17 18:30 ICD10 Worksheet Patient Problems: Problems Problem Status Onset Carotid stenosis, left Acute TIA (transient ischemic attack) Acute
--- NOTE | 2017-01-23 09:30 | GCON ---
[f rep st] CONSULTATION NEUROLOGIC CONSULTATION REFERRING PHYSICIAN: Antelmo Finn MD HISTORY: The patient is a 71-year-old gentleman I am asked to see for neurologic consultation [facility] wing readmission yesterday after discharge. He has a severe left internal carotid artery stenosis, and has had another TIA with a total of 3 TIAs within the last 7 or 8 days. On this occasion, yeste rday, he felt the right leg was a little bit weak and no other symptom. This resolved. The onset w as around 3 p.m. and lasted about 45 minutes. They only live a few miles away and came to the [facility] and called me, and he was readmitted and put on IV heparin again. He says he feels back to his baseline, although he is not sure if the right leg is completely normal in its strength. He says th at several years ago he had lumbar spine surgery and had a history of a right radiculopathy with sci atica and says this was a little different yesterday, but that particular prominent change has resol alka. He does not feel there is any clear-cut difference really now between his legs. At this point , he feels stable and rested well and does not have any new complaints. There is no change in the past medical history, family history, social history, medications, allergi es. PHYSICAL EXAMINATION: VITAL SIGNS: Blood pressure of 153/87, pulse of 63, respirations 18, tempera ture 36.6. NECK: Supple with a left carotid bruit. CARDIAC: Regular rate and rhythm. No murmur. NEUROLOGIC: His NIH stroke scale is 0. Pupils 3 mm and reactive. Extraocular movements intact. Normal facial sensation and strength. Motor exam, 5/5 strength. No sensory loss. Reflexes 1+. ASSESSMENT AND PLAN: Total unit time of 35 minutes with [id number] discussion with the patient an d his and review of the case. The patient clearly has a left carotid artery in need of definit desmond correction, and will remain on anticoagulation until Dr. Harmon can arrange for a carotid endartere ctomy in the next few days most likely. Copy requested to: Kathryn Vargas MD [place] /[id number]/MODL
--- NOTE | 2017-01-23 09:35 | HOSPPROG ---
Hospitalist Progress Note Assessment/Plan: 71-year-old recently admitted for TIA and found to have 99% stenosis of his left carotid artery corresponding to his symptoms. He was discharged on Plavix yesterday with hopes to follow up with [facility] this week for carotid endarterectomy. While at home he experienced recurrent symptoms and came directly to the emergency department. # TIAs with 99% stenosis left carotid artery. He has breakthrough symptoms on Plavix. Plan will be to continue heparin drip and proceed with carotid endarterectomy in the a.m.. * Heparin protocol * Discussed with Dr. Huddleston and Dr. Harmon # hypertension # dyslipidemia Subjective: Patient comfortable has no new complaints. The weakness in his right leg has resolved. No aphasia. Objective: Vital Signs Temp Pulse Resp BP Pulse Ox 36.6 C 63 18 153/87 H 96 01/23/17 08:10 01/23/17 08:10 01/23/17 08:10 01/23/17 08:10 01/23/17 08:10 01/22/17 01/23/17 01/24/17 05:59 05:59 05:59 Intake Total 300 Output Total 1460 300 Balance -1160 -300 PT 13.9 SEC (12.0-15.0) 01/22/17 18:30 INR 1.08 (0.83-1.16) 01/22/17 18:30 - Physical Exam Constitutional: no apparent distress, not in pain Eyes: PERRL Cardiovascular: regular rate and rhythym, no murmur, rub, or gallop Respiratory: no respiratory distress, no rales or rhonchi, clear to auscultation Gastrointestinal: normoactive bowel sounds, soft, non-tender abdomen Musculoskeletal: full muscle strength Neurologic: AAOx3, sensation intact bilaterally, No facial droop ICD10 Worksheet Patient Problems: Problems Problem Status Onset Carotid stenosis, left Acute TIA (transient ischemic attack) Acute
[2017-01-23] MEDS: ATORVASTATIN CALCIUM 40 MG TAB PO SCH (20:48)
[2017-01-24] MEDS ORDERED: BUPIVACAINE/EPI 0.5% 30 ML SDV ONE (04:03)
[2017-01-24] MEDS ORDERED: THROMBIN (BOVINE) 5,000 UNIT VIAL TP ONE (04:04)
[2017-01-24] MEDS ORDERED: LIDOCAINE 1% 2 ML INJ ONE (06:06)
[2017-01-24] MEDS ORDERED: MIDAZOLAM 2 MG/2 ML VIAL ONE (06:54)
[2017-01-24] MEDS ORDERED: REMIFENTANIL HCL 1 MG VIAL ONE (06:56)
[2017-01-24] MEDS ORDERED: PROPOFOL/EMULSION 500 MG/50 ML BOTTLE IV ONE (06:56)
[2017-01-24] MEDS ORDERED: LIDOCAINE 2% 100 MG/5 ML SYR ONE (06:57)
[2017-01-24] MEDS ORDERED: ONDANSETRON 4 MG/2 ML VIAL ONE (06:59)
[2017-01-24] MEDS ORDERED: HEPARIN 10,000 UNIT/10 ML MDV ONE (06:59)
[2017-01-24] MEDS ORDERED: DEXAMETHASONE 4 MG/ML VIAL ONE ×2 (06:59)
[2017-01-24] MEDS ORDERED: LIDOCAINE HCL 160 MG/4 ML LTA KIT TP ONE (06:59)
[2017-01-24] MEDS ORDERED: PHENYLEPHRINE 10 MG/ML SDV ONE (07:00)
[2017-01-24] MEDS ORDERED: fentaNYL 100 MCG/2 ML INJ ONE ×2 (07:02→10:32)
[2017-01-24] MEDS ORDERED: epHEDrine SULFATE 10 MG/ML SYR ONE (07:18)
[2017-01-24] MEDS ORDERED: GLYCOPYRROLATE 0.2 MG/1 ML VIAL ONE (07:40)
[2017-01-24] MEDS ORDERED: PROTAMINE SULFATE 50 MG/5 ML VIAL IVP ONE (08:14)
[2017-01-24] MEDS ORDERED: SURGIFLO MATRIX KIT WITH THROMBIN TP ONE (09:07)
--- NOTE | 2017-01-24 09:31 | POSTOPPROG ---
Post Op Note Date of Operation: 01/24/17 Surgeon: Peterson Harmon Media Analyst: Walter Barnes Anesthesiologist: Mango Fonseca Anesthesia: GET(General Endotracheal) Pre-op Diagnosis: Symptomatic left carotid stenosis Post-op Diagnosis: Same Indication: Crescendo TIA Procedure: Left CEA with Dacron patch angioplasty Findings: 90+ % stenosis with cheesy long plaque Inf/Abcess present in the surg proc area at time of surgery?: No EBL: Minimal Complications: no immediate Specimen(s): plaque
[2017-01-24] MEDS: LISINOPRIL 10 MG TAB PO SCH (12:20)
--- NOTE | 2017-01-24 13:03 | SOAPPROG ---
SOAP Progress Note Assessment/Plan: Assessment: s/p L CEA. feeling great. madeline lunch. min pain. BP90's. comfortable. neuro intact. neck flat. doing well. supportive care. cont plavix. antic dc in am barring any overnight issues. Plan: 01/23/17 09:25 01/24/17 13:02 Objective: Vital Signs Temp Pulse Resp BP Pulse Ox 36.4 C 52 L 16 98/58 L 92 01/24/17 12:00 01/24/17 12:00 01/24/17 12:00 01/24/17 12:00 01/24/17 12:00 Laboratory Results 01/24/17 04:57 01/23/17 01/24/17 01/25/17 05:59 05:59 05:59 Intake Total 300 1140 1830 Output Total 1460 3260 750 Balance -1160 -2120 1080 PT 13.9 SEC (12.0-15.0) 01/22/17 18:30 INR 1.08 (0.83-1.16) 01/22/17 18:30 ICD10 Worksheet Patient Problems: Problems Problem Status Onset Carotid stenosis, left Acute TIA (transient ischemic attack) Acute
--- NOTE | 2017-01-24 14:10 | GOP ---
[f rep st] OPERATIVE REPORT DATE OF OPERATION: 01/24/2017 SURGEON: Peterson Harmon MD FORESTRY SUPPORT SPECIALIST: Walter Barnes MD. ANESTHESIOLOGIST: General. ANESTHESIOLOGIST: Mango Fonseca MD. PREOPERATIVE DIAGNOSIS: Symptomatic left carotid artery stenosis. POSTOPERATIVE DIAGNOSIS: Symptomatic left carotid artery stenosis. PROCEDURE PERFORMED: Left carotid endarterectomy with Dacron patch angioplasty. FINDINGS: INDICATIONS: 71-year-old male with symptomatic left carotid artery stenosis with progressive crescendo TIAs throughout the last week. He is undergoing urgent surgical repair today. Risks and benefits were explained of bleeding, infection, recurrent stenosis, nerve injury, heightened risk of stroke as well as associated cardiovascular complications. All questions were answered. He desires to proceed. DESCRIPTION OF PROCEDURE: After general anesthesia was induced, the left neck was infiltrated with a 0.5% Marcaine with epinephrine along the anterior and posterior border of the sternocleidomastoid muscle. A longitudinal incision was created along the anterior border of the sternocleidomastoid muscle. The platysma muscle was divided. The facial vein was identified and divided between suture ligatures. The carotid artery was circumferentially dissected out including the common carotid internal and external branches as was the superior thyroid artery. A very large protruding plaque was identified from just beneath the carotid bulb extending for approximately 4 cm onto the internal carotid artery. Heparin bolus was administered. Stump pressure was calculated with a mean pressure of 50. A Shunt was subsequently not utilized. Occluding clamps were placed. A longitudinal arteriotomy was created into the internal carotid. The plaque was estimated to be greater than 90% stenosed with diffuse friable central cheesy plaque and a calcified exterior with extreme thinning of the internal carotid artery. The endarterectomy was completed and taken up into the external branch. Loose fronds were all individually retrieved there. An internal carotid arteriotomy was extended to allow for smooth tapering on the endpoint. A series of tacking sutures was placed circumferentially to maintain the proximal intima down. The artery was forebled and backbled. A Dacron patch was used for closure, and this was done with 2 competing 6-0 Prolene sutures. Prior to final closure, again, the arteries were forebled and backbled. Additional sutures were placed at unique bleeding points. Satisfactory hemostasis was assured throughout the neck cavity. The hypoglossal nerve was confirmed intact upon completion as was the proximal ansa cervicalis. The neck was closed in layers with absorbs by Dermabond. The patient was taken to the recovery room awake, moving all 4 extremities well in good condition. /[id number]/MODL MTDD
--- NOTE | 2017-01-24 15:12 | HOSPPROG ---
Hospitalist Progress Note Assessment/Plan: 71-year-old recently admitted for TIA and found to have 99% stenosis of his left carotid artery corresponding to his symptoms. He was discharged on Plavix yesterday with hopes to follow up with [facility] this week for carotid endarterectomy. While at home he experienced recurrent symptoms and came directly to the emergency department. He underwent CEA today without complications. He is ambulating around the unit. # TIAs with 99% stenosis left carotid artery. He has breakthrough symptoms on Plavix. Plan will be to continue heparin drip and proceed with carotid endarterectomy in the a.m.. * Heparin protocol * Discussed with Dr. Huddleston and Dr. Harmon # hypertension # dyslipidemia Subjective: has some discomfort at the site, no cp or sob Objective: Vital Signs Temp Pulse Resp BP Pulse Ox 36.4 C 52 L 16 98/58 L 92 01/24/17 12:00 01/24/17 12:00 01/24/17 12:00 01/24/17 12:00 01/24/17 12:00 Laboratory Results 01/24/17 04:57 01/23/17 01/24/17 01/25/17 05:59 05:59 05:59 Intake Total 300 1140 1830 Output Total 1460 3260 1400 Balance -1160 -2120 430 PT 13.9 SEC (12.0-15.0) 01/22/17 18:30 INR 1.08 (0.83-1.16) 01/22/17 18:30 - Physical Exam Constitutional: no apparent distress, uncomfortable Eyes: PERRL Ears, Nose, Mouth, Throat: moist mucous membranes Respiratory: no respiratory distress Neurologic: AAOx3, other (gait normal.), No facial droop Psychiatric: interacting appropriately, not anxious ICD10 Worksheet Patient Problems: Problems Problem Status Onset Carotid stenosis, left Acute TIA (transient ischemic attack) Acute
--- NOTE | 2017-01-24 15:56 | NEUROPROG ---
Assessment: 1. status post left carotid endarterectomy 2. status post TIAs secondary to 1. 35 total minutes Floor time; over 50% counseling regarding the patient's TIAs and left CEA this morning. Patient is doing very well and had no complications. We had a long discussion regarding his family history and secondary prevention measures going forward. Specifically I recommend the followin. when cleared by Dr. Harmon, he should start Plavix 75 mg daily for vascular prophylaxis 2. Continue statin therapy daily and tight control of BP with his primary care physician as an outpatient 3. I recommend, at a minimum, once yearly carotid ultrasounds for surveillance of his right carotid artery and any buildup of plaque again on the left. He will likely discharge tomorrow morning therefore we will sign off and continue to follow-up p.r.n. Subjective: patient had CEA this morning, doing well Objective: Vital Signs Temp Pulse Resp BP Pulse Ox 36.4 C 52 L 16 98/58 L 92 01/24/17 12:00 01/24/17 12:00 01/24/17 12:00 01/24/17 12:00 01/24/17 12:00 Laboratory Results 01/24/17 04:57 01/23/17 01/24/17 01/25/17 05:59 05:59 05:59 Intake Total 300 1140 1830 Output Total 1460 3260 1400 Balance -1160 -2120 430 PT 13.9 SEC (12.0-15.0) 01/22/17 18:30 INR 1.08 (0.83-1.16) 01/22/17 18:30 he is awake, lucid conversant no aphasia or dysarthria no focal abnormalities Allergies/Adverse Reactions: No Known Allergies Allergy (Verified 01/22/17 15:07)
[2017-01-24] MEDS: TIMOLOL 0.25% 5 ML OPHT.BTL RTEYE SCH (17:29)
[2017-01-24] MEDS ORDERED: BISACODYL 10 MG SUPP PR PRN (18:49)
[2017-01-24] MEDS ORDERED: LACTULOSE 20 GM/30 ML UDCUP PO PRN (18:49)
[2017-01-24] MEDS ORDERED: MAGNESIUM HYDROXIDE 30 ML UDCUP PO PRN (18:49)
[2017-01-24] MEDS: HYDROCODONE/APAP 5/325 TAB PO PRN (19:28)
[2017-01-24] MEDS: POLYETHYLENE GLYCOL 3350 17 GM PKT PO PRN (19:28)
[2017-01-24] MEDS: SENNOSIDES/DOCUSATE SODIUM TAB PO SCH ×2 (19:28→19:56)
[2017-01-24] MEDS: ATORVASTATIN CALCIUM 40 MG TAB PO SCH (19:28)
[2017-01-24] MEDS: LATANOPROST 0.005% 2.5 ML OPHT DROPS EACHEYE SCH (19:56)
[2017-01-25] MEDS: HYDROCODONE/APAP 5/325 TAB PO PRN ×3 (01:14→11:48)
[2017-01-25] MEDS: LISINOPRIL 10 MG TAB PO SCH ×2 (08:11→11:47)
[2017-01-25] MEDS: SENNOSIDES/DOCUSATE SODIUM TAB PO SCH (08:11)
[2017-01-25] MEDS: TIMOLOL 0.25% 5 ML OPHT.BTL RTEYE SCH (08:33)
[2017-01-25] MEDS ORDERED: CLOPIDOGREL BISULFATE 75 MG TAB PO SCH (09:00)
--- NOTE | 2017-01-25 09:13 | SOAPPROG ---
SOAP Progress Note Assessment/Plan: Assessment: POD 1 s/p L CEA w/ Dacron patch angioplasty. Resting in recliner eating breakfast. at bedside. Patient had a good night. Pain controlled with Vicodin. Reports some trouble with word recall but able to hold conversation without difficulty. Denies difficulty swallowing. Denies visual changes. VS 110/ 60, HR 40-60's, 91% RA, afeb, No new labs today. A&O x 3, Left neck incision with appropriate induration, clean dry and intact. CN VII and XII intact. Plan: doing well s/p L CEA. Home when ok with medicine team. Medicine team to address medications. Restarting Plavix today. Follow up with Dr. Harmon in 2 weeks. Plan: 01/25/17 09:09 Objective: Vital Signs Temp Pulse Resp BP Pulse Ox 36.5 C 48 L 14 110/62 91 L 01/25/17 07:21 01/25/17 07:21 01/25/17 07:21 01/25/17 07:21 01/25/17 07:21 Laboratory Results 01/24/17 04:57 01/24/17 01/25/17 01/26/17 05:59 05:59 05:59 Intake Total 1140 2330 Output Total 3260 3100 Balance -2120 -770 PT 13.9 SEC (12.0-15.0) 01/22/17 18:30 INR 1.08 (0.83-1.16) 01/22/17 18:30 ICD10 Worksheet Patient Problems: Problems Problem Status Onset Carotid stenosis, left Acute TIA (transient ischemic attack) Acute
[2017-01-25] MEDS: POLYETHYLENE GLYCOL 3350 17 GM PKT PO PRN (09:22)
[2017-01-25 11:39] VITALS: BP 137/66; PULSE 55; RESP 20; TEMP 97.5; O2SAT 94
--- NOTE | 2017-01-25 14:43 | GDS ---
[f rep st] DISCHARGE SUMMARY DIAGNOSES: 1. Transient ischemic attack with left carotid artery stenosis. 2. Hypertension. 3. Dyslipidemia. 4. Mitral regurgitation. 5. Aortic stenosis, followed at [place]. CONSULTATIONS: Dr. Lucien Harmon, general surgery. PROCEDURES: Left CEA. HOSPITAL COURSE: The patient is a 71-year-old who was admitted with TIA symptoms. He was admitted previously to [facility] for similar symptoms, was discharged on Plavix, and returned with breakthrough ne urologic symptoms. He had been diagnosed with stenosis of his left carotid artery, corresponding to his TIA symptoms. Because of breakthrough symptoms on Plavix, he was admitted this time for defini tive treatment with carotid endarterectomy. Dr. Lucien Harmon saw him in consultation. He underwent [facility] on 01/24/2017; this was uncomplicated. Postoperatively, he did quite well with stable blood pr essure, vital signs, and is ready to be discharged home. He does have a little bit of pain in his n edin, otherwise is doing well. CONDITION ON DISCHARGE: Good. Vital signs stable. DISCHARGE MEDICATIONS: Please see discharge medication form. He will be started on Plavix and was given [place] as needed for pain. FOLLOWUP: He will follow up with Dr. Lucien Harmon for postop care and return to Dr. Cleveland pina, his PCP, for ongoing care. Total time spent with the patient on the day of discharge and coordination of care was 35 minutes. /[id number]/MODL
== END 2017-01-25 14:32 | disposition home or self-care (01) | DRG 39 ==
LOC: F3N 17:22
PROVIDERS: ADMIT Internal Medicine; ATTEND Internal Medicine
DX: I65.22 Occlusion and stenosis of left carotid artery (principal); I10 Essential (primary) hypertension; E78.5 Hyperlipidemia, unspecified; I08.0 Rheumatic disorders of both mitral and aortic valves
CPT/HCPCS: 85520-90; 96365; 96366; 97116-GP; 97161-GP; 97530-GP; C1768; J1100; J1644; J2001; J2250; J2370; J2405; J2704; J2720; J3010

== ENCOUNTER 2017-01-29 07:45 | Emergency (ER) | payer OTHER ==
--- NOTE | 2017-01-29 07:59 | EDPHY ---
H & P Stated Complaint: R leg weakness x 30 min similiar to past tia, recent carotid sx, Time Seen by Provider: 01/29/17 07:59 HPI/ROS: CHIEF COMPLAINT: Right leg weakness HISTORY OF PRESENT ILLNESS: The patient presents to the ED with complaints of acute right leg weakness which began prior to arrival. The patient has a history of multiple admissions over the past month for symptoms related to a TIA from presumed carotid artery stenosis. The patient did undergo carotid endarterectomy earlier this month. The patient currently is on Plavix. The patient stated that his blood pressure was elevated today with reported systolic blood pressure in the 200 range. The patient developed recurrent symptoms of right leg weakness earlier this morning. The patient states his symptoms have somewhat improved but the leg does feel subjectively weak still. The patient denies additional neurologic symptoms. REVIEW OF SYSTEMS: A comprehensive 10 point review of systems is otherwise negative aside from elements mentioned in the history of present illness. Source: Patient - Personal History Current Tetanus/Diphtheria Vaccine: Unsure Current Tetanus Diphtheria and Acellular Pertussis (TDAP): Unsure - Medical/Surgical History Hx Asthma: No Hx Chronic Respiratory Disease: No Hx Diabetes: No Hx Cardiac Disease: Yes Hx Renal Disease: No Hx Cirrhosis: No Hx Alcoholism: No Hx HIV/AIDS: No Hx Splenectomy or Spleen Trauma: No Other PMH: pna/mitral regurg/tia. L carotid surgery 01/23/17 - Social History Smoking Status: Never smoked - Physical Exam Exam: General Appearance: Alert, no distress Eyes: Pupils equal and round no pallor or injection ENT, Mouth: Mucous membranes moist Neck: Surgical incision is clean dry and intact, there is some swelling presumed to be postoperative in nature along the course of the left internal carotid artery Respiratory: There are no retractions, lungs are clear to auscultation Cardiovascular: Regular rate and rhythm Gastrointestinal: Abdomen is soft and nontender, no masses, bowel sounds normal Neurological: Alert and oriented x4, 5/5 strength noted all 4 extremities, cranial nerves 2-12 intact, NIH stroke scale equals 0 Skin: Warm and dry, no rashes Musculoskeletal: Neck is supple nontender Extremities: symmetrical, full range of motion Constitutional: Initial Vital Signs Temperature (C) 36.8 C 01/29/17 07:53 Heart Rate 60 01/29/17 07:53 Respiratory Rate 16 01/29/17 07:53 Blood Pressure 167/89 H 01/29/17 07:53 O2 Sat (%) 99 01/29/17 07:53 O2 Delivery Mode Room Air Allergies/Adverse Reactions: No Known Allergies Allergy (Verified 01/22/17 15:07) Home Medications: Medication Instructions Recorded Atorvastatin Calcium [Lipitor 40 40 mg PO HS 01/21/17 mg (*)] Herbals/Supplements -Info Only 1 ea PO DAILY 01/21/17 Latanoprost 0.005% [Xalatan 0.005% 1 drops EACHEYE HS 01/21/17 (*)] Lisinopril [Zestril 10 mg (*)] 10 mg PO DAILY 01/21/17 Timolol 0.25% [TIMOPTIC 0.25% (*)] 1 drops RTEYE DAILY 01/21/17 amLODIPine BESYLATE [Norvasc 2.5 2.5 mg PO DAILY 01/21/17 mg (*)] traZODone [traZODONE 50MG (*)] 50 mg PO HS PRN 01/21/17 Clopidogrel Bisulfate [Plavix (*)] 75 mg PO DAILY #30 tab 01/25/17 Hydrocodone/APAP 5/325 [[place] 2 tab PO Q4HRS PRN #45 tab 01/25/17 5/325 (*)] Polyethylene Glycol 3350 [Miralax 17 gm PO DAILY PRN #0 pkt 01/25/17 17 gm (*)] Medical Decision Making - Diagnostics Imaging Results: Imaging Impressions Head CT 01/29/17 08:27 Impression: Nothing acute identified. Final concordant results discussed with Dr. Ran Guevara at 10:08 AM. General information for patients regarding this examination can be found at [email or web address]. If you have questions or comments about this report, please contact me at (hospital) or [phone] (cell). Neck CTA 01/29/17 08:27 Impression: Stable CTA brain. No embolus or thrombosis identified. 2. CT Angiography of the Neck (With Contrast) , 9:46 AM Clinical Indications: Right leg weakness, recent left carotid endarterectomy 5 days ago Technique: During IV administration of 90 mL of Isovue-370 intravenously, helical multidetector data acquisition was obtained from the upper thorax cephalad through the skull base. The thinly collimated data were manipulated in multiple projections on the 3D computer workstation by the radiologist. Dose reduction techniques were utilized. Comparison: CTA neck January 21, 2017 Findings: Since January 21, there is been a left carotid endarterectomy and a long flow limiting stenosis has been dramatically improved. The proximal left internal carotid artery now measures 13 x 12 mm in diameter. Compared to the contralateral 6 x 6 mm. At the distal and of the endarterectomy there is a 32%, nonflow limiting stenosis and at the proximal end a 14% nonflow limiting stenosis, both by NASCET criteria. There is a new short focal occlusion of the proximal left external carotid artery, with collateral flow from the inferior thyroidal artery rapidly filling the more distal external carotid artery. Previously this area was unremarkable. Soft tissue swelling both around the endarterectomy site as well as in the left neck where there are gas bubbles present, likely postoperative. There is stable mild nonflow limiting plaque of the right carotid bifurcation, with widely patent common, internal and external carotid arteries.. Both vertebral arteries remain widely patent to the normal basilar artery. Impression: 1. Nonflow limiting stenoses at the distal and proximal ends of the widely patent left endarterectomy. 2. New short occlusion of the proximal left external carotid artery with collateral flow. 3. Soft tissue swelling and gas bubbles in the left neck likely postoperative. Infection cannot be excluded. 4. Prominent sized proximal left internal carotid artery within the endarterectomy surgery site. It is difficult for me occult to determine if this is a normal operative state or an aneurysm. Note: All stenoses are calculated using NASCET Criteria. Final concordant results called and discussed with George Guevara, at 2016 10:29 General information for patients regarding this examination can be found at [email or web address]. If you have questions or comments about this report, please contact me at (hospital) or [phone] (cell). Head CTA 01/29/17 08:28 Impression: Stable CTA brain. No embolus or thrombosis identified. 2. CT Angiography of the Neck (With Contrast) , 9:46 AM Clinical Indications: Right leg weakness, recent left carotid endarterectomy 5 days ago Technique: During IV administration of 90 mL of Isovue-370 intravenously, helical multidetector data acquisition was obtained from the upper thorax cephalad through the skull base. The thinly collimated data were manipulated in multiple projections on the 3D computer workstation by the radiologist. Dose reduction techniques were utilized. Comparison: CTA neck January 21, 2017 Findings: Since January 21, there is been a left carotid endarterectomy and a long flow limiting stenosis has been dramatically improved. The proximal left internal carotid artery now measures 13 x 12 mm in diameter. Compared to the contralateral 6 x 6 mm. At the distal and of the endarterectomy there is a 32%, nonflow limiting stenosis and at the proximal end a 14% nonflow limiting stenosis, both by NASCET criteria. There is a new short focal occlusion of the proximal left external carotid artery, with collateral flow from the inferior thyroidal artery rapidly filling the more distal external carotid artery. Previously this area was unremarkable. Soft tissue swelling both around the endarterectomy site as well as in the left neck where there are gas bubbles present, likely postoperative. There is stable mild nonflow limiting plaque of the right carotid bifurcation, with widely patent common, internal and external carotid arteries.. Both vertebral arteries remain widely patent to the normal basilar artery. Impression: 1. Nonflow limiting stenoses at the distal and proximal ends of the widely patent left endarterectomy. 2. New short occlusion of the proximal left external carotid artery with collateral flow. 3. Soft tissue swelling and gas bubbles in the left neck likely postoperative. Infection cannot be excluded. 4. Prominent sized proximal left internal carotid artery within the endarterectomy surgery site. It is difficult for me occult to determine if this is a normal operative state or an aneurysm. Note: All stenoses are calculated using NASCET Criteria. Final concordant results called and discussed with George Guevara, at 2016 10:29 General information for patients regarding this examination can be found at [email or web address]. If you have questions or comments about this report, please contact me at (hospital) or [phone] (cell). ED Course/Re-evaluation: The patient presents to the ED with very mild complaints of subjective right leg weakness. The patient has no obvious weakness on exam today. The patient has had a fairly complicated past medical history and recent hospitalization and surgery for his carotid stenosis. Patient's case was reviewed with his vascular surgeon Dr. Peterson Harmon. We did perform a CT scan of the brain and CT angiogram which demonstrate no evidence of a obvious graft failure. There is no evidence of an intracranial hemorrhage or other acute finding. The patient' s blood pressure was well controlled throughout his stay in the ED. At this point time the etiology of his intermittent leg weakness is uncertain. There is nothing to suggest an acute neurologic emergency at this point time. The patient is comfortable following up with his regular physician. It may be that further workup is indicated to exclude the possibility of lumbar disease as an etiology of his episodic leg weakness. The patient has been instructed in our blood pressure goals and given return precautions. The patient does have a follow-up appointment with his vascular surgeon Dr. Harmon. He will also contact his primary care provider Dr. Reyna. Differential Diagnosis: Differential diagnosis considered includes stroke, TIA, peripheral neuropathy, lumbar stenosis, complication of vascular surgery - Data Points Laboratory Results: Laboratory Results 01/29/17 08:50 01/29/17 08:50 01/29/17 01/29/17 08:50 08:50 WBC 5.04 10^3/uL 10^3/uL (3.80-9.50) RBC 4.44 10^6/uL 10^6/uL (4.40-6.38) Hgb 14.1 g/dL g/dL (13.7-17.5) Hct 40.6 % % (40.0-51.0) MCV 91.4 fL fL (81.5-99.8) MCH 31.8 pg pg (27.9-34.1) MCHC 34.7 g/dL g/dL (32.4-36.7) RDW 12.3 % % (11.5-15.2) Plt Count 272 10^3/uL 10^3/uL (150-400) MPV 9.7 fL fL (8.7-11.7) Neut % (Auto) 69.6 % % (39.3-74.2) Lymph % (Auto) 15.1 % % (15.0-45.0) [place] % (Auto) 10.7 % % (4.5-13.0) Eos % (Auto) 3.4 % % (0.6-7.6) Baso % (Auto) 0.8 % % (0.3-1.7) Nucleat RBC Rel Count 0.0 % % (0.0-0.2) Absolute Neuts (auto) 3.51 10^3/uL 10^3/uL (1.70-6.50) Absolute Lymphs (auto) 0.76 10^3/uL L 10^3/uL (1.00-3.00) Absolute Monos (auto) 0.54 10^3/uL 10^3/uL (0.30-0.80) Absolute Eos (auto) 0.17 10^3/uL 10^3/uL (0.03-0.40) Absolute Basos (auto) 0.04 10^3/uL 10^3/uL (0.02-0.10) Absolute Nucleated RBC 0.00 10^3/uL 10^3/uL (0-0.01) Immature Gran % 0.4 % % (0.0-1.1) Immature Gran # 0.02 10^3/uL 10^3/uL (0.00-0.10) Sodium 138 mEq/L mEq/L (134-144) Potassium 4.9 mEq/L mEq/L (3.5-5.2) Chloride 100 mEq/L mEq/L (97-110) Carbon Dioxide 27 mEq/l mEq/l (22-31) Anion Gap 11 mEq/L mEq/L (8-16) BUN 16 mg/dL mg/dL (7-23) Creatinine 0.9 mg/dL mg/dL (0.7-1.3) Estimated GFR > 60 Glucose 106 mg/dL H mg/dL (70-100) Calcium 9.6 mg/dL mg/dL (8.5-10.4) Departure - Departure Disposition: Home, Routine, Self-Care Clinical Impression: Leg weakness, Hypertension, H/O carotid endarterectomy Condition: Good Instructions: Transient Ischemic Attack (ED) Additional Instructions: 1. Please follow up with Dr. Harmon as scheduled this week. 2. Please contact Dr. Reyna to schedule a follow-up visit this week. 3. Please continue your regular medications and keep a log of your blood pressure. 4. Please return to the ED for persistent severely elevated blood pressure, new neurologic symptoms or other concerns. Referrals: RAMONA REYNA [Primary Care Provider] - As per Instructions
[2017-01-29] MEDS ORDERED: IOPAMIDOL (ISOVUE 370) 100 ML BTL IV ONE (08:40)
[2017-01-29 09:10] LABS: % IMMATURE GRANULYOCYTES 0.4 % (0.0-1.1); ABSOLUTE IMMATURE GRANULOCYTES 0.02 10^3/uL (0.00-0.10); ADD DIFF? NO; ADD MORPH? NO; ADD SCAN? NO; ATYPICAL LYMPHOCYTE FLAG 10 (0-99); FRAGMENT RBC FLAG 0 (0-99); HEMATOCRIT 40.6 % (40.0-51.0); HEMOGLOBIN 14.1 g/dL (13.7-17.5); LEFT SHIFT FLG 0 (0-99); LIPEMIA HEMOLYSIS FLAG 90 (0-99); MEAN CELL HEMOGLOBIN 31.8 pg (27.9-34.1); MEAN CELL HEMOGLOBIN CONCENTR. 34.7 g/dL (32.4-36.7); MEAN CELL VOLUME 91.4 fL (81.5-99.8); MEAN PLATELET VOLUME 9.7 fL (8.7-11.7); PLATELET CLUMPS FLAG 0 (0-99); PLATELET COUNT 272 10^3/uL (150-400); RED BLOOD CELL COUNT 4.44 10^6/uL (4.40-6.38); RED CELL DISTRIBUTION WIDTH 12.3 % (11.5-15.2)
[2017-01-29 09:26] LABS: ANION GAP 11 mEq/L (8-16); CALCIUM 9.6 mg/dL (8.5-10.4); CARBON DIOXIDE 27 mEq/l (22-31); CHLORIDE 100 mEq/L (97-110); CREATININE 0.9 mg/dL (0.7-1.3); GLOMERULAR FILTRATION RATE > 60; GLUCOSE 106 mg/dL (70-100); POTASSIUM 4.9 mEq/L (3.5-5.2); SODIUM 138 mEq/L (134-144)
[2017-01-29 10:04] VITALS: RESP 18
[2017-01-29 11:20] VITALS: BP 134/80; PULSE 56; TEMP 97.5; O2SAT 92
== END 2017-01-29 11:19 | disposition home or self-care (01) ==
DX: R53.1 Weakness (principal); I10 Essential (primary) hypertension; Z98.890 Other specified postprocedural states
CPT/HCPCS: 70450; 70496; 70498; 99285; Q9967